=== PATIENT | male | born 1990 | race Caucasian/White ===

== ENCOUNTER 2017-10-20 02:02 | Emergency (ER) | payer MEDICAID ==
[~2017-10-20] VITALS: Ht 175.3 cm; Wt 82.0 kg
[2017-10-20] MEDS ORDERED: KETOROLAC 60MG/2ML VIAL IM STA (03:19)
[2017-10-20] MEDS ORDERED: AZITHROMYCIN 500 MG in DEXT 5% WATER 250 ML IV SCH (03:30)
[2017-10-20] MEDS ORDERED: CEFTRIAXONE 1 G PREMIX 50 ML IV ONE (03:30)
[2017-10-20 03:47] LABS: BASOPHILS % 0.4 % (0.0-2.0); EOSINOPHILS % 0.1 % (0.0-5.0); HEMATOCRIT. 41.8 % (42.0-52.0); HEMOGLOBIN. 14.7 g/dL (14.0-18.0); LYMPHOCYTES % 12.1 % (20.0-50.0); MEAN CORPUSCULAR HEMOGLOBIN 31.1 pg (28.0-32.0); MEAN CORPUSCULAR VOLUME 88.5 fL (80.0-94.0); MEAN PLATELET VOLUME 9.3 fl (7.4-10.4); MONOCYTES % 6.8 % (2.0-8.0); NEUTROPHILS % 80.6 % (40.0-76.0); PLATELET 154 x1000/uL (130-400); RED BLOOD CELL COUNT 4.72 mill/uL (4.7-6.1); RED CELL DISTRIBUTION WIDTH 12.9 % (11.6-14.6)
[2017-10-20 03:54] LABS: CHLORIDE 106 mEq/L (98-107)
[2017-10-20 04:04] LABS: INR 1.1
[2017-10-20 05:06] LABS: CLARITY URINE CLEAR (CLEAR); COLOR URINE YELLOW (YELLOW); KETONES URINE NEGATIVE (NEGATIVE); LEUKOCYTE ESTERASE URINE NEGATIVE (NEGATIVE); NITRITE URINE NEGATIVE (NEGATIVE); OCCULT BLOOD URINE NEGATIVE (NEGATIVE); PH URINE 6.5 (4.5-8.0); PROTEIN URINE NEGATIVE (NEGATIVE); SPECIFIC GRAVITY URINE 1.008 (1.005-1.030); UROBILINOGEN URINE 0.2 E.U./dL (0.2-1.0)
[2017-10-20] MEDS ORDERED: POTASSIUM CHLORIDE 20MEQ TABLET SR PO SCH (05:42)
[2017-10-20 06:34] VITALS: BP 119/68
== END 2017-10-20 06:41 | disposition home or self-care (01) ==
LOC: ER 02:02
DX: J03.90 Acute tonsillitis, unspecified (principal); R04.2 Hemoptysis; F17.210 Nicotine dependence, cigarettes, uncomplicated; R06.02 Shortness of breath; Z79.899 Other long term (current) drug therapy
CPT/HCPCS: 36415; 71045; 80053; 81003; 83605; 85025; 85610; 87040; 87086; 96365; 96366; 96367; 96372; 99285; J0456; J0696; J1885; Z7610; J7060

== ENCOUNTER 2018-11-15 20:59 | Emergency (ER) | payer MEDICAID ==
[~2018-11-15] VITALS: Ht 177.8 cm; Wt 82.0 kg
[2018-11-16] MEDS ORDERED: SODIUM CHLORIDE 0.9% 1,000 ML IV ONE (01:00)
[2018-11-16] MEDS ORDERED: KETOROLAC 30MG/ML VIAL IV STA (01:00)
[2018-11-16 02:55] VITALS: BP 126/65
== END 2018-11-16 03:07 | disposition home or self-care (01) ==
LOC: ER 20:59
DX: J02.9 Acute pharyngitis, unspecified (principal); E86.0 Dehydration; L53.8 Other specified erythematous conditions; F17.200 Nicotine dependence, unspecified, uncomplicated
CPT/HCPCS: 93005; 96374; 99283; J1885; J7030; Z7610

== ENCOUNTER 2019-01-11 15:21 | Emergency (ER) | payer MEDICAID ==
[~2019-01-11] VITALS: Ht 175.3 cm; Wt 79.0 kg
[2019-01-11] MEDS ORDERED: SODIUM CHLORIDE 0.9% 1,000 ML IV ONE (16:43)
[2019-01-11 17:00] LABS: BASOPHILS % 0.5 % (0.0-2.0); EOSINOPHILS % 1.2 % (0.0-5.0); HEMATOCRIT. 42.5 % (42.0-52.0); HEMOGLOBIN. 14.9 g/dL (14.0-18.0); LYMPHOCYTES % 34.2 % (20.0-50.0); MEAN CORPUSCULAR HEMOGLOBIN 31.4 pg (28.0-32.0); MEAN CORPUSCULAR VOLUME 89.7 fL (80.0-94.0); MEAN PLATELET VOLUME 8.7 fl (7.4-10.4); MONOCYTES % 5.5 % (2.0-8.0); NEUTROPHILS % 58.6 % (40.0-76.0); PLATELET 197 x1000/uL (130-400); RED BLOOD CELL COUNT 4.74 mill/uL (4.7-6.1); RED CELL DISTRIBUTION WIDTH 13.6 % (11.6-14.6)
[2019-01-11 17:06] LABS: CHLORIDE 109 mEq/L (98-107)
[2019-01-11 17:19] LABS: PROTHROMBIN TIME 10.6 sec (9.6-11.0)
[2019-01-11 18:48] LABS: CLARITY URINE CLEAR (CLEAR); COLOR URINE YELLOW (YELLOW); KETONES URINE NEGATIVE (NEGATIVE); LEUKOCYTE ESTERASE URINE NEGATIVE (NEGATIVE); NITRITE URINE NEGATIVE (NEGATIVE); OCCULT BLOOD URINE NEGATIVE (NEGATIVE); PROTEIN URINE NEGATIVE (NEGATIVE); SPECIFIC GRAVITY URINE 1.026 (1.005-1.030)
[2019-01-11] MEDS ORDERED: IBUPROFEN 600MG TABLET PO ONE (21:45)
[2019-01-11] MEDS ORDERED: ACETAMINOPHEN 500MG TABLET PO ONE (21:45)
[2019-01-11 23:28] VITALS: BP 110/77
== END 2019-01-11 23:30 | disposition home or self-care (01) ==
LOC: ER 15:21
DX: R10.9 Unspecified abdominal pain (principal); R11.0 Nausea; R30.0 Dysuria; R05 Cough
CPT/HCPCS: 36415; 74176; 80053; 81003; 83690; 85025; 85610; 99284; J7030

== ENCOUNTER 2021-01-02 11:49 | Emergency (ER) | payer MEDICAID, OTHER ==
[~2021-01-02] VITALS: Ht 165.1 cm; Wt 92.2 kg
[2021-01-02 12:40] LABS: BASOPHILS % 0.2 % (0.0-2.0); EOSINOPHILS % 0.8 % (0.0-5.0); HEMATOCRIT. 40.2 % (42.0-52.0); MEAN CORPUSCULAR HEMOGLOBIN 31.3 pg (28.0-32.0); MEAN CORPUSCULAR VOLUME 89.5 fL (80.0-94.0); MEAN PLATELET VOLUME 8.8 fl (7.4-10.4); MONOCYTES % 7.9 % (2.0-8.0); NEUTROPHILS % 56.1 % (40.0-76.0); PLATELET 193 x1000/uL (130-400); RED BLOOD CELL COUNT 4.49 mill/uL (4.7-6.1)
[2021-01-02 12:48] LABS: CHLORIDE 109 mEq/L (98-107)
[2021-01-02 17:09] VITALS: BP 129/77
== END 2021-01-02 17:16 | disposition home or self-care (01) ==
LOC: ER 13:24
DX: R07.89 Other chest pain (principal); E86.0 Dehydration; R03.0 Elevated blood-pressure reading, without diagnosis of hypertension; R25.3 Fasciculation
CPT/HCPCS: 36415; 71045; 80053; 83880; 84484; 85025; 93005; 99285